=== PATIENT | female | born 1960 | race Caucasian/White ===

== ENCOUNTER → 2020-07-06 16:25 | Outpatient (BNVA) | payer SELFPAY | PROVIDERS: Family Provider Nurse Practitioner; PCP Nurse Practitioner; Visit Provider Nurse Practitioner | DX: E78.2 Mixed hyperlipidemia (principal); I10 Essential (primary) hypertension; G47.00 Insomnia, unspecified; F41.9 Anxiety disorder, unspecified; J30.2 Other seasonal allergic rhinitis; M79.7 Fibromyalgia; R23.2 Flushing | CPT/HCPCS: 80053; 80061; 84443 ==

== ENCOUNTER → 2021-01-18 09:08 | Outpatient (BNVA) | payer OTHER, SELFPAY | PROVIDERS: Family Provider Nurse Practitioner; PCP Nurse Practitioner; Visit Provider Nurse Practitioner Family | DX: Z20.822 Contact with and (suspected) exposure to COVID-19 (principal); J06.9 Acute upper respiratory infection, unspecified | CPT/HCPCS: 87635 ==

== ENCOUNTER → 2021-05-08 11:28 | Outpatient (BNVA) | payer OTHER, SELFPAY | PROVIDERS: Family Provider Nurse Practitioner; PCP Nurse Practitioner | DX: Z11.52 Encounter for screening for COVID-19 (principal); Z20.822 Contact with and (suspected) exposure to COVID-19 | CPT/HCPCS: 87635 ==

== ENCOUNTER → 2021-05-21 15:13 | Outpatient (BNVA) | payer OTHER, SELFPAY | PROVIDERS: Family Provider Nurse Practitioner; PCP Nurse Practitioner; Visit Provider Nurse Practitioner | DX: I10 Essential (primary) hypertension (principal) | CPT/HCPCS: 80053; 80061; 85025 ==

== ENCOUNTER 2021-10-12 15:15 | Emergency (ER) | payer OTHER, SELFPAY ==
--- NOTE | 2021-10-12 15:30 | XR_ITS ---
WS: [id number] XR knee LT 1-2V 59346 REASON FOR EXAM: L knee pain FINDINGS: No acute fracture and no focal bone abnormality. Mild to moderate narrowing of the medial knee joint space. Mild subchondral sclerosis. Mild narrowing of the lateral knee joint space with mild subchondral sclerosis. Mild to moderate narrowing of the patellofemoral joint space with subchondral sclerosis. No soft tissue abnormality. XR/XR knee LT 1-2V 74080 IMPRESSION: Osteoarthritis of the left knee. No acute abnormality identified.
[2021-10-12 15:33] VITALS: BP 197/113; PULSE 54; RESP 18; TEMP 36.2; O2SAT 98; BMI 33.9
--- NOTE | 2021-10-12 15:58 | USR_ITS ---
PROCEDURE INFORMATION: Exam: US Duplex Left Lower Extremity Veins, Limited Exam date and time: 10/12/2021 4:05 PM Age: 61 years old Clinical indication: Pain; Leg, lower; Left; Additional info: Eval for dvt TECHNIQUE: Imaging protocol: Real-time Duplex ultrasound of the Left Lower Extremity with 2-D appiah scale, color Doppler flow and spectral waveform analysis with image documentation. Limited exam focused on the left lower extremity veins. COMPARISON: CR XR knee LT 1-2V 97803 10/12/2021 2:39 PM FINDINGS: Left deep veins: Unremarkable. The common femoral, femoral, proximal profunda femoral and popliteal veins are patent without thrombus. Normal Doppler waveforms. Normal compressibility and/or augmentation response. Left superficial veins: Unremarkable. Saphenofemoral junction is patent without thrombus. Soft tissues: Unremarkable. US/CV venous duplex [facility] [id number] IMPRESSION: No evidence of deep vein thrombosis.
--- NOTE | 2021-10-12 15:58 | W.ED.EXTPRO ---
HPI - Extremity Problem General: Chief complaint: Extremity Problem,Nontraumatic Stated complaint: Left leg pain behind knee area, cant bare weight Time Seen by Provider: 10/12/21 15:29 PFSH ED PFSH: Medical History (Updated 08/23/21 @ 15:34 by ARABELLA Ronquillo) Anxiety Chronic bronchitis Fibromyalgia Hypertension, benign Insomnia Mixed hyperlipidemia Seasonal allergies Vitamin D deficiency Surgical History No history of previous surgery Family History Other Diabetes Hypertension Social History Smoking and tobacco status: never smoked Second hand smoke exposure: No Smoking risk assessment/counseling performed?: No Alcohol intake: never Desire information about alcohol rehabilitation?: No Counseling given: No Desire information about substance/drug rehabilitation?: No Counseling given: No Adopted: No Caregiver/support person: No Lives independently: Yes Household members: none Housing: House Marital status: / Number of children: 0 Highest education level completed: High School Graduate service: No Current occupational status: employed Current occupation: [employer] Pets and animals: Yes Leisure activites: exercise Current gender identity: Female Course Vital Signs: Vital signs: Vital Signs Temperature 97.1 F L 10/12/21 15:33 Pulse Rate 54 L 10/12/21 15:33 Respiratory Rate 18 10/12/21 15:33 Blood Pressure 197/113 10/12/21 15:33 Pulse Oximetry 98 10/12/21 15:33 MDM - Extremity (Nontraumatic) Lab Data Radiology Impressions Knee X-Ray 10/12/21 15:30 IMPRESSION: Osteoarthritis of the left knee. No acute abnormality identified. Discharge Plan Discharge Condition: Stable Prescriptions: No Action albuterol sulfate [ProAir HFA] 90 mcg/actuation HFA aerosol inhaler 2 puff inhalation Q6H PRN (Reason: shortness of breath or wheezing) Qty: 8.5 0RF valsartan [Diovan] 320 mg tablet 320 mg PO DAILY Qty: 30 2RF tizanidine 2 mg tablet 2 mg PO DAILY PRN (Reason: muscle spasticity) Qty: 30 2RF pravastatin 40 mg tablet 40 mg PO DAILY Qty: 30 2RF montelukast [Singulair] 10 mg tablet 10 mg PO DAILY Qty: 30 2RF furosemide 20 mg tablet 20 mg PO DAILY Qty: 30 2RF duloxetine [Cymbalta] 60 mg capsule,delayed release(DR/EC) 60 mg PO BID Qty: 60 2RF budesonide-formoterol [Symbicort] 160-4.5 mcg/actuation HFA aerosol inhaler 2 puff inhalation Q12H Qty: 10.2 2RF atenolol 25 mg tablet 25 mg PO DAILY Qty: 30 2RF Xlear See Rx Instructions .ROUTE .COMPLEX Qty: 45 5RF Rx Instructions: 2 sprays each nostril three times day as needed; Referrals: Rita Velasco, MASTER HEARTH TECHNICIAN-C [Primary Care Provider] - Coding Level of Care Code ED Privacy Director for [facility] Randle
--- NOTE | 2021-10-12 16:10 | ED_ITS ---
HPI - General Adult General: Chief complaint: Extremity Problem,Nontraumatic Stated complaint: Left leg pain behind knee area, cant bare weight Time Seen by Provider: 10/12/21 15:29 History of Present Illness: Patient is a 61-year-old female with no significant past medical history presenting to the emergency room with complaints of L calf and back thigh pain. Patient tells me that since 6 days ago patient has had significant pain in the back of her calf, knee and distal thigh of the L leg. Patient tells me if she first noticed the pain while at work. Patient tells me that she does a lot of standing pain usually gets worse at the more she stands. Patient tells me the pain is relieved when she sits down. Patient is concerned that she may be having a blood clot came to the emergency room for an evaluation. Patient denies any swelling redness or pain of the L knee. Patient denies any fever or chills, hip pain or any recent fall. Patient denies any anticoagulation use. Patient also denies any palpable mass in the back of the knee. Onset: 6 days ago Duration:6 days Location:home Severity:mild Associated symptoms: Deny chest pain, dyspnea, nausea, rash, palpitations or vomiting Review of Systems Const: Denies: fever(s) or chills Eyes: Denies: change in vision ENMT: Denies: mouth pain Card: Denies: chest pain or palpitations Resp: Denies: dyspnea or non-productive cough GI: Denies: abdominal pain, nausea, vomiting or diarrhea : Denies: dysuria Musc: Reports: extremity pain (+L calf/posterior knee and posterior distal thigh pain) Skin/Breast: Denies: rash or new lesions Neuro: Denies: weakness in extremities Psych: Reports: other (Normal mood) Avila/Lymph: Denies: easy bruising PFSH ED PFSH: Medical History Anxiety Chronic bronchitis Fibromyalgia Hypertension, benign Insomnia Mixed hyperlipidemia Seasonal allergies Vitamin D deficiency Surgical History No history of previous surgery Family History Other Diabetes Hypertension Social History Smoking and tobacco status: never smoked Second hand smoke exposure: No Smoking risk assessment/counseling performed?: No Alcohol intake: never Desire information about alcohol rehabilitation?: No Counseling given: No Desire information about substance/drug rehabilitation?: No Counseling given: No Adopted: No Caregiver/support person: No Lives independently: Yes Household members: none Housing: House Marital status: / Number of children: 0 Highest education level completed: High School Graduate service: No Current occupational status: employed Current occupation: [employer] Pets and animals: Yes Leisure activites: exercise Current gender identity: Female Physical Exam Const: COMMON NORMALS: alert HENMT: COMMON NORMALS: atraumatic HEAD & SCALP: atraumatic MOUTH: moist mucous membranes not abnormal Eye: COMMON NORMALS: EOMs intact bilaterally and conjunctivae normal CONJUNCTIVA: Yes conjunctivae normal Neck/C-Spine: COMMON NORMALS: full ROM and supple Resp: COMMON NORMALS: normal respiratory effort and clear to auscultation bilaterally AUSCULTATION: clear to auscultation bilaterally Cardio: COMMON NORMALS: regular rate RATE: regular rate GI: COMMON NORMALS: Soft to palpation and non-tender PALPATION: Yes Soft to palpation Extremity: COMMON NORMALS: full ROM OTHER: +mild L calf tenderness palpation, +no palpable Gibbons's cyst behind the L knee, +mild distal posterior lateral thigh tenderness palpation, motion of the left knee intact, no visible erythema, fluctuance or swelling. Left knee does not appear to be swollen compared to the contralateral aspect. Neurovascular exam intact in the affected site. Neuro: SENSORIUM/ORIENTATION: Yes alert MOTOR EXAM: No Abnormal motor strength present and Other motor observations present (no focal motor deficits) Psych: COMMON NORMALS: speech normal SPEECH: Yes normal speech MOOD & AFFECT: Yes euthymic mood Course Vital Signs: Vital signs: Vital Signs Temperature 97.1 F L 10/12/21 15:33 Pulse Rate 54 L 10/12/21 15:33 Respiratory Rate 18 10/12/21 15:33 Blood Pressure 197/113 10/12/21 15:33 Pulse Oximetry 98 10/12/21 15:33 [facility] - General Adult Medical Decision Making 61-year-old female presents emergency room with complaints of right posterior knee, upper calf and distal thigh pain x6 days. There does not appear to be any signs of septic joint or acute infection. Patient has no palpable Gibbons's cyst. Will evaluate for DVT versus fracture. X-rays negative for any acute fracture. DVT is negative for any findings. I have given patient close follow-up with PCP in 1 week. Should patient have any worsening pain or swelling, patient can consider repeating an ultrasound that time to evaluate for DVT. Symptoms today are likely musculoskeletal. Patient is given Tylenol and lidocaine with significant improvement in symptoms. Patient is encouraged to stretch and follow-up with primary care provider for other modalities for treatment. Rx tylenol and lidocaine PRN pain Disposition: Discharge. Patient counseled regarding diagnostic impression, treatment plan. Patient given ED strict return precautions to return for continuation, worsening, or development of new symptoms. Instructed to f/u w/ PCP regarding symptoms today. Patient verbalized understanding. Lab Data Radiology Impressions Knee X-Ray 10/12/21 15:30 IMPRESSION: Osteoarthritis of the left knee. No acute abnormality identified. Venous Duplex 10/12/21 15:58 IMPRESSION: No evidence of deep vein thrombosis. Imaging Data Other Imaging: Radiologist's impression: [address] [address] XRay Report Signed Patient: Jessica Yun Unit #: [id number] : 1960 Age/Sex: 61 / F ADM Date: 10/12/21 Loc: ER Room/Bed: Attending Dr: Ordering Provider/Ordering MD: Carmela Estrada MD Date of Service: 10/12/21 Procedure(s): XR knee LT 1-2V 62408 Accession Number(s): [id number] Report Number: [id number] WS: [id number] XR knee LT 1-V 23829 REASON FOR EXAM: L knee pain FINDINGS: No acute fracture and no focal bone abnormality. Mild to moderate narrowing of the medial knee joint space. Mild subchondral sclerosis. Mild narrowing of the lateral knee joint space with mild subchondral sclerosis. Mild to moderate narrowing of the patellofemoral joint space with subchondral sclerosis. No soft tissue abnormality. XR/XR knee LT 1-2V 07298 IMPRESSION: Osteoarthritis of the left knee. No acute abnormality identified. ? ? Dictated By: Mateo Green Jr, MD Signed By: Mateo Green Jr, MD Signed Date/Time: 10/12/21 1550 DD/ 1547 Discharge Plan Discharge Patient Disposition: Home Clinical Impression: Leg pain Condition: Stable Prescriptions: New acetaminophen 500 mg tablet 500 mg PO Q6H PRN (Reason: pain) 5 Days Qty: 20 0RF lidocaine 5 % adhesive patch,medicated 1 patch topical DAILY PRN (Reason: pain) 30 Days Qty: 30 0RF Rx Instructions: leave on most painful area for up to 12 hrs No Action albuterol sulfate [ProAir HFA] 90 mcg/actuation HFA aerosol inhaler 2 puff inhalation Q6H PRN (Reason: shortness of breath or wheezing) Qty: 8.5 0RF valsartan [Diovan] 320 mg tablet 320 mg PO DAILY Qty: 30 2RF tizanidine 2 mg tablet 2 mg PO DAILY PRN (Reason: muscle spasticity) Qty: 30 2RF pravastatin 40 mg tablet 40 mg PO DAILY Qty: 30 2RF montelukast [Singulair] 10 mg tablet 10 mg PO DAILY Qty: 30 2RF furosemide 20 mg tablet 20 mg PO DAILY Qty: 30 2RF duloxetine [Cymbalta] 60 mg capsule,delayed release(DR/EC) 60 mg PO BID Qty: 60 2RF budesonide-formoterol [Symbicort] 160-4.5 mcg/actuation HFA aerosol inhaler 2 puff inhalation Q12H Qty: 10.2 2RF atenolol 25 mg tablet 25 mg PO DAILY Qty: 30 2RF Xlear See Rx Instructions .ROUTE .COMPLEX Qty: 45 5RF Rx Instructions: 2 sprays each nostril three times day as needed; Discharge Orders: Discharge ED (Routine); Ordered 10/12/21 Ordered By: Carmela Estrada Referrals: Rita Velasco, LOGGING ASSISTANT-C [Primary Care Provider] - Discharge Diet: Advance as tolerated Discharge Activity: Increase activity as tolerated Patient Instructions: Leg Pain (ED) Activity Restrictions/Additional Instructions: Please come back to the emergency room for any new or concerning complaints. Please follow-up with your primary care provider for further evaluation of your symptoms Stand Alone Forms: Work/School Release Coding Level of Care Code ED Computer Systems Information Director for Alison Fwd Exam Comprehensive
[2021-10-12] MEDS: lidocaine 5% Patch 1 PATCH TOPICAL (16:21)
[2021-10-12] MEDS: acetaminophen 500 mg Tablet PO (16:22)
--- NOTE | 2021-10-12 16:46 | PC.NURSE ---
INFORMED DR. MARTINEZ OF BP OF 221/92 HE VERBALIZED UNDERSTANDING AND VERBALIZED TO CONTINUE WITH DC.
== END 2021-10-12 17:00 | disposition home or self-care (01) ==
PROVIDERS: Emergency Provider Emergency Medicine; PCP Nurse Practitioner
DX: M79.605 Pain in left leg (principal); I10 Essential (primary) hypertension; E78.2 Mixed hyperlipidemia
CPT/HCPCS: 73560; 93971; 99283

== ENCOUNTER → 2022-01-01 11:17 | Outpatient (BNVA) | payer OTHER, SELFPAY | PROVIDERS: PCP Nurse Practitioner; Visit Provider Nurse Practitioner | DX: I10 Essential (primary) hypertension (principal); E55.9 Vitamin D deficiency, unspecified | CPT/HCPCS: 80053; 80061; 82306; 85025 ==

== ENCOUNTER → 2022-06-17 16:37 | Outpatient (BNVA) | payer OTHER, SELFPAY | PROVIDERS: PCP Nurse Practitioner; Visit Provider Nurse Practitioner | DX: E55.9 Vitamin D deficiency, unspecified (principal); I10 Essential (primary) hypertension; E78.2 Mixed hyperlipidemia; M10.9 Gout, unspecified | CPT/HCPCS: 80053; 80061; 82306; 83735; 84550 ==

== ENCOUNTER 2022-08-07 14:15 | Outpatient (CLI) | payer OTHER, SELFPAY | END 2022-08-07 14:16 | disposition home or self-care (01) | LOC: SLEEP 08-08 14:16 | PROVIDERS: PCP Nurse Practitioner; Visit Provider Internal Medicine Cardiovascular Disease | DX: G47.33 Obstructive sleep apnea (adult) (pediatric) (principal) | CPT/HCPCS: G0399 ==

== ENCOUNTER → 2023-03-27 14:50 | Outpatient (BNVA) | payer MEDICARE, SELFPAY | PROVIDERS: PCP Nurse Practitioner; Visit Provider Nurse Practitioner | DX: E78.2 Mixed hyperlipidemia (principal); E79.0 Hyperuricemia without signs of inflammatory arthritis and tophaceous disease; I10 Essential (primary) hypertension | CPT/HCPCS: 80053; 80061; 84550 ==

== ENCOUNTER → 2023-09-15 15:55 | Outpatient (BNVA) | payer MEDICARE, SELFPAY | PROVIDERS: PCP Nurse Practitioner; Visit Provider Nurse Practitioner | DX: E78.2 Mixed hyperlipidemia (principal); J42 Unspecified chronic bronchitis; F41.9 Anxiety disorder, unspecified; I10 Essential (primary) hypertension; J30.2 Other seasonal allergic rhinitis; M10.9 Gout, unspecified | CPT/HCPCS: 80053; 80061; 84443; 84550; 85025 ==

== ENCOUNTER → 2023-12-31 14:44 | Outpatient (BNVA) | payer MEDICARE, SELFPAY | PROVIDERS: PCP Nurse Practitioner; Visit Provider Internal Medicine | DX: R07.89 Other chest pain (principal); E78.2 Mixed hyperlipidemia; I10 Essential (primary) hypertension; F17.200 Nicotine dependence, unspecified, uncomplicated | CPT/HCPCS: 99214 ==

== ENCOUNTER → 2024-03-10 16:20 | Outpatient (BNVA) | payer MEDICARE, SELFPAY | PROVIDERS: PCP Nurse Practitioner; Visit Provider Nurse Practitioner | DX: I10 Essential (primary) hypertension; E78.2 Mixed hyperlipidemia; E55.9 Vitamin D deficiency, unspecified | CPT/HCPCS: 80053; 80061; 82306; 83735; 84443; 85025 ==

== ENCOUNTER → 2024-07-14 15:06 | Outpatient (BNVA) | payer MEDICARE, SELFPAY | PROVIDERS: PCP Nurse Practitioner; Visit Provider Nurse Practitioner | DX: I10 Essential (primary) hypertension (principal); E78.2 Mixed hyperlipidemia | CPT/HCPCS: 80053; 80061 ==

== ENCOUNTER → 2025-01-26 15:12 | Outpatient (BNVA) | payer MEDICARE, SELFPAY | PROVIDERS: PCP Nurse Practitioner; Visit Provider Nurse Practitioner | DX: F41.9 Anxiety disorder, unspecified (principal); I10 Essential (primary) hypertension; E55.9 Vitamin D deficiency, unspecified | CPT/HCPCS: 80053; 80061; 84443; 85025 ==